=== PATIENT | male | born 1940 | race Caucasian/White ===

== ENCOUNTER 2020-01-26 14:19 | Outpatient (CLI) | payer MEDICARE, OTHER, SELFPAY ==
--- NOTE | 2020-01-26 14:43 | XR_ITS ---
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 This corresponds to a T score score of 0.0 and Z score of 0.8. Left femoral neck bone mineral density measures 0.833. This corresponds to a T score of -1.9 and Z sc ore of -0.6. Left forearm bone mineral density 1.033 with a T score of 0.4 and a Z score 1.7 XR/XR DEXA axial skeleton* [id number] IMPRESSION: Osteopenia Patient's FRAX calculated 10 year probability for major osteoporotic fracture i s 31.0 % and osteoporotic hip fracture is 16.8%. Bone mineral density lumbar spine has decreased -0.6% and -2.1% in the left fem oral neck since 2017.
== END 2020-01-26 14:20 | disposition home or self-care (01) ==
LOC: RADWPI 14:25
PROVIDERS: Family Provider Internal Medicine; PCP Internal Medicine; Visit Provider Internal Medicine Rheumatology
DX: Z79.52 Long term (current) use of systemic steroids (principal); M85.80 Other specified disorders of bone density and structure, unspecified site
CPT/HCPCS: 77080

== ENCOUNTER → 2020-05-12 06:13 | Day surgery (SDC) | payer MEDICARE, OTHER, SELFPAY ==
[2020-05-11 09:28] VITALS: BMI 26.7
[2020-05-12] VITALS (13 sets, daily range): BP systolic 99–139; BP diastolic 53–67; PULSE 52–74; RESP 16–18; TEMP 36.3; O2SAT 90–99
--- NOTE | 2020-05-12 06:00 | XACV_ITS ---
Gender: Male : 1940 Any Known Allergies: No known allergies Exam Priority: Routine Diagnostic Cath Status: Elective Diagnostic Findings Patient with disabling shortness of breath and chest pain. Claustrophobia to the point where could not tolerate stress testing and imaging. Previous angiography several years ago for similar symptoms was normal. Continues with same symptoms of disabling chest pain and shortness of breath. Coronary angiography recommended. Coronary angiography reveals right coronary artery dominance. The right coronary artery is normal. The left main is short. The circumflex and LAD are both completely normal. Conclusions Normal coronary arteries. Normal left ventricular function. Recommendations None. Interventional RX Recommendation: none Diagnostic RX Recommendation: none Anticoagulation: Heparin Ventriculography Ejection Fraction: 60.0 % I, the attending physician, have reviewed and verified all procedure medications. Yes, all medications given per verbal order History/Risk Factors Hypertension: No Dyslipidemia: No Peripheral Arterial Disease (PAD): No Myocardial Infarction ([place]): No Obesity: No Renal Disease: No Tobacco Use: Never Prior Interventions PCI: No CABG: No Valve Surgery: No Report Signatures Finalized by:Dr. Jakub Gifford MD on 05/12/2020 7:47:33 AM
[2020-05-12 06:38] LABS: Basophils % 0.3 %; Eosinophils # 0.2 10^3/uL (0.0-0.8); Eosinophils % 1.7 %; Hemoglobin 9.9 g/dL (11.7-16.6); Lymphocytes # 1.4 10^3/uL (0.8-4.8); Lymphocytes % 13.6 %; Mean Corpuscular HGB Conc 30.9 g/dL (30.0-36.0); Mean Corpuscular Hemoglobin 27.8 pg (28.0-34.0); Mean Corpuscular Volume 89.9 fL (80-94); Mean Platelet Volume 10.5 fL (7.4-10.4); Monocytes # 0.9 10^3/uL (0.2-0.9); Monocytes % 8.8 %; Neutrophils # 7.8 10^3/uL (1.8-7.7); Neutrophils % 74.8 %; Nucleated Red Blood Cells % 0 %; Platelet Count 386 10^3/cmm (130-400); Red Blood Count 3.56 10^6/uL (4.1-5.3); White Blood Count 10.4 10^3/uL (4.0-10.0)
[2020-05-12] MEDS: diphenhydrAMINE 50 mg Capsule PO (06:38)
[2020-05-12 07:26] LABS: Blood Urea Nitrogen 12 mg/dL (8-23); Calcium 9.3 mg/dL (8.5-10.5); Carbon Dioxide 24 mmol/L (22-29); Chloride 104 mmol/L (98-107); Glucose 105 mg/dL (65-115); Osmolality Calculated 288 mOsm/kg (285-295); Sodium 141 mmol/L (136-145)
--- NOTE | 2020-05-12 08:45 | PC.NURSE ---
TR Band 2ml air released from TR band at this time per protocol. Site unremarkable, no hematoma or bleeding noted. Will monitor. Pt sitting up in bed eating breakfast at this time, call light in reach.
== END | disposition home or self-care (01) ==
PROVIDERS: PCP Internal Medicine; Visit Provider Internal Medicine Cardiovascular Disease
DX: R06.02 Shortness of breath (principal); R07.9 Chest pain, unspecified; I34.0 Nonrheumatic mitral (valve) insufficiency; R00.2 Palpitations; Z79.891 Long term (current) use of opiate analgesic; Z79.52 Long term (current) use of systemic steroids; Z82.49 Family history of ischemic heart disease and other diseases of the circulatory system; F17.290 Nicotine dependence, other tobacco product, uncomplicated
CPT/HCPCS: 36415; 80048; 85025; 93452; C1769; C1887; C1894; J1644; J2001; J2250; J3010; J3490; J7030; Q0163; Q9967

== ENCOUNTER → 2020-05-19 11:00 | Outpatient (BNVA) | payer MEDICARE, OTHER, SELFPAY | PROVIDERS: PCP Internal Medicine; Visit Provider Nurse Practitioner Family | DX: R07.9 Chest pain, unspecified (principal) | CPT/HCPCS: 80048 ==

== ENCOUNTER 2020-09-19 16:25 | Inpatient (IN) | payer MEDICARE, OTHER, SELFPAY ==
[2020-09-19] VITALS (16 sets, daily range): BP systolic 113–163; BP diastolic 51–80; PULSE 65–97; RESP 12–22; TEMP 37–37.2; O2SAT 90–96; BMI 25.8
--- NOTE | 2020-09-19 17:17 | XRR_ITS ---
PROCEDURE INFORMATION: Exam: XR Chest, 1 View Exam date and time: 09/19/2020 6:37 PM Age: 80 years old Clinical indication: Chest pain; Type not specified; Prior surgery; Surgery type: Right shoulder; Additional info: Cp TECHNIQUE: Imaging protocol: XR of the chest Views: 1 view. COMPARISON: CT chest con [id number] 09/13/2018 3:52 PM FINDINGS: Tubes, catheters and devices: A right shoulder prosthesis projects in satisfactory position. Lungs: Unremarkable. No consolidation. Pleural space: Unremarkable. No pleural effusion. No pneumothorax. Heart/Mediastinum: Unremarkable. No cardiomegaly. Bones/joints: Unremarkable. XR/XR chest 1V portable [id number] IMPRESSION: No acute abnormality is seen in the chest.
--- NOTE | 2020-09-19 17:17 | ECG_ITS ---
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 Measurements Intervals [place] Rate: 75 P: 3 [place]: 150 QRS: -18 QRSD: 85 T: 15 QT: 344 QTc: 386 Interpretive Statements SINUS RHYTHM WITH SINUS ARRHYTHMIA LOW QRS VOLTAGE IN PRECORDIAL LEADS [QRS DEFLECTION < 1.0 mV IN CHEST LEADS] POSSIBLE RIGHT VENTRICULAR CONDUCTION DELAY [RSR (QR) IN V1/V2] Compared to ECG 09/13/2018 14:55:52 Low QRS voltage now present Short OH interval no longer present Electronically Signed On 09-19-2020 20:13:48 CDT by Kim Torrez M.D. [email or web address] [email or web address]/OM/[id number]
[2020-09-19 17:54] LABS: Basophils % 0.3 %; Eosinophils # 0.1 10^3/uL (0.0-0.8); Eosinophils % 0.6 %; Hematocrit 34.2 % (42.0-52.0); Hemoglobin 10.5 g/dL (11.7-16.6); Lymphocytes # 0.6 10^3/uL (0.8-4.8); Lymphocytes % 4.2 %; Mean Corpuscular HGB Conc 30.7 g/dL (30.0-36.0); Mean Corpuscular Hemoglobin 29.7 pg (28.0-34.0); Mean Corpuscular Volume 96.9 fL (80-94); Mean Platelet Volume 10.7 fL (7.4-10.4); Monocytes # 0.9 10^3/uL (0.2-0.9); Monocytes % 6.6 %; Neutrophils # 11.71 10^3/uL (1.8-7.7); Neutrophils % 86.9 %; Nucleated Red Blood Cells % 0 %; Platelet Count 439 10^3/cmm (130-400); Red Blood Count 3.53 10^6/uL (4.1-5.3); Red Cell Distribution Width 16.2 % (12.1-15.1); White Blood Count 13.5 10^3/uL (4.0-10.0)
--- NOTE | 2020-09-19 18:02 | ED_ITS ---
HPI - Chest Pain General: Chief Complaint: Chest Pain Stated Complaint: o2 86/ general not feeling good Time Seen by Provider: 09/19/20 17:38 Source: patient Mode of arrival: ambulatory Limitations: no limitations History of Present Illness: HPI narrative: 80-year-old male who states he has been having chest pain on mild dyspnea over the last 2 to 3 days. He denies any pain currently. He states he feels like he has palpitations and a pounding type pain when he does have the pain. Denies any vomiting or diarrhea. Denies any worsening or improving factors. Associated symptoms: Deny abdominal pain, dyspnea, fever(s), nausea or vomiting Review of Systems Const: Denies: fever(s), chills, body aches or change in appetite Eyes: Denies: blurry vision or eye discomfort ENMT: Denies: throat pain or dental pain Card: Reports: chest pain Resp: Denies: dyspnea GI: Denies: abdominal pain, nausea, vomiting or diarrhea : Denies: dysuria Musc: Denies: neck pain or back pain Skin/Breast: Denies: rash Neuro: Denies: headache(s) Psych: Denies: depression Vidal/Lymph: Denies: easy bruising All/Imm: Denies: urticaria PFSH ED PFSH: Medical History Arthritis Chest pain Mitral valve insufficiency Pounding heartbeat SOB (shortness of breath) Surgical History S/P appendectomy S/P cataract extraction Family History Mother CAD (coronary artery disease) Father , AGE 84 Myocardial infarction Social History Smoking and tobacco status: current every day smoker smokeless tobacco Smokeless tobacco details: OCCA Household members: spouse Marital status: service: No Current occupational status: employed Physical Exam Const: COMMON NORMALS: no acute distress, patient oriented x3 and healthy appearing HENMT: COMMON NORMALS: normocephalic and atraumatic HEAD & SCALP: normocephalic and atraumatic Eye: COMMON NORMALS: Equal, round and reactive pupils present and EOMs intact bilaterally PUPIL: Yes Equal, round and reactive pupils present Neck/C-Spine: COMMON NORMALS: full ROM and supple Chest: COMMONS NORMALS: normal inspection of the chest and normal palpation of entire chest wall Resp: COMMON NORMALS: normal respiratory effort, No retractions, No use of accessory muscles and clear to auscultation bilaterally AUSCULTATION: clear to auscultation bilaterally Cardio: COMMON NORMALS: regular rate, regular rhythm and No murmurs present (Cardio) RATE: regular rate RHYTHM: regular rhythm GI: COMMON NORMALS: Normal to inspection, nondistended, normoactive bowel sounds present, Soft to palpation, non-tender and no masses PALPATION: Yes Soft to palpation Extremity: COMMON NORMALS: normal to inspection and full ROM Neuro: COMMON NORMALS: patient oriented x3, moves all extremities and no focal motor deficits Psych: COMMON NORMALS: mental status grossly normal, Normal thought process present and cooperative THOUGHT PROCESS: Normal thought process present Skin: COMMON NORMALS: no rashes or lesions noted and no wounds GENERAL SKIN EXAM: no rashes or lesions noted Course Vital Signs: Vital signs: Vital Signs Temperature 98.6 F 09/19/20 16:31 Pulse Rate 86 09/19/20 21:43 Respiratory Rate 14 09/19/20 21:43 Blood Pressure 159/80 09/19/20 21:43 Pulse Oximetry 96 09/19/20 21:43 MDM - Chest Pain MDM Narrative: Medical decision making narrative: Patient presents with a pulmonary visit likely causing his chest pain and shortness of breath. We will start him on Lovenox. I spoke to hospitalist and will admit. Patient is been stable while here Lab Data: Labs: Lab Results 09/19/20 09/19/20 09/19/20 Range/Units 17:46 17:46 17:46 WBC 13.5 H (4.0-10.0) 10^3/ uL RBC 3.53 L (4.1-5.3) 10^6/u L Hgb 10.5 L (11.7-16.6) g/dL Hct 34.2 L (42.0-52.0) % MCV 96.9 H (80-94) fL MCH 29.7 (28.0-34.0) pg MCHC 30.7 (30.0-36.0) g/dL RDW 16.2 H (12.1-15.1) % Plt Count 439 H (130-400) 10^3/c mm MPV 10.7 H (7.4-10.4) fL Neut % (Auto) 86.9 % Lymph % (Auto) 4.2 % [place] % (Auto) 6.6 % Eos % (Auto) 0.6 % Baso % (Auto) 0.3 % Neut # (Auto) 11.71 H (1.8-7.7) 10^3/u L Lymph # (Auto) 0.6 L (0.8-4.8) 10^3/u L [place] # (Auto) 0.9 (0.2-0.9) 10^3/u L Eos # (Auto) 0.1 (0.0-0.8) 10^3/u L Baso # (Auto) 0.0 (0.0-0.1) 10^3/u L Nucleated RBC % (a uto) 0 % Nucleated RBCs # 0.0 /100WBC PT 13.60 (12.1-14.9) SECO NDS INR 1.01 (0.8-1.2) D-Dimer (0-0.59) ug/mIFE U Sodium 137 (136-145) mmol/L Potassium 4.4 (3.5-5.1) mmol/L Chloride 102 (98-107) mmol/L Carbon Dioxide 27 (22-29) mmol/L Anion Gap 12.4 (5-19) BUN 10 (8-23) mg/dL Creatinine 0.9 (0.7-1.2) mg/dL GFR Calculation Not Reportable Glucose 121 H (65-115) mg/dL Calculated Osmolal ity 284 L (285-295) mOsm/k g Calcium 9.4 (8.5-10.5) mg/dL Total Bilirubin 0.8 (0.15-1.2) mg/dL AST 16 (0-40) U/L ALT 15 (0-41) U/L Alkaline Phosphata se 104 (40-130) IU/L Troponin T Baselin e (0-15) ng/L Troponin T 120 Min quileute (0-15) ng/L Delta Troponin T (0-10) ABS# Total Protein 6.2 L (6.6-8.7) g/dL Albumin 4.0 (3.5-5.2) g/dL Globulin 2.2 (1.3-4.6) g/dL 09/19/20 09/19/20 09/19/20 Range/Units 17:46 17:46 19:40 WBC (4.0-10.0) 10^3/ uL RBC (4.1-5.3) 10^6/u L Hgb (11.7-16.6) g/dL Hct (42.0-52.0) % MCV (80-94) fL MCH (28.0-34.0) pg MCHC (30.0-36.0) g/dL RDW (12.1-15.1) % Plt Count (130-400) 10^3/c mm MPV (7.4-10.4) fL Neut % (Auto) % Lymph % (Auto) % [place] % (Auto) % Eos % (Auto) % Baso % (Auto) % Neut # (Auto) (1.8-7.7) 10^3/u L Lymph # (Auto) (0.8-4.8) 10^3/u L [place] # (Auto) (0.2-0.9) 10^3/u L Eos # (Auto) (0.0-0.8) 10^3/u L Baso # (Auto) (0.0-0.1) 10^3/u L Nucleated RBC % (a uto) % Nucleated RBCs # /100WBC PT (12.1-14.9) SECO NDS INR (0.8-1.2) D-Dimer 1.21 H (0-0.59) ug/mIFE U Sodium (136-145) mmol/L Potassium (3.5-5.1) mmol/L Chloride (98-107) mmol/L Carbon Dioxide (22-29) mmol/L Anion Gap (5-19) BUN (8-23) mg/dL Creatinine (0.7-1.2) mg/dL GFR Calculation Glucose (65-115) mg/dL Calculated Osmolal ity (285-295) mOsm/k g Calcium (8.5-10.5) mg/dL Total Bilirubin (0.15-1.2) mg/dL AST (0-40) U/L ALT (0-41) U/L Alkaline Phosphata se (40-130) IU/L Troponin T Baselin e 12 (0-15) ng/L Troponin T 120 Min [place] 10.60 (0-15) ng/L Delta Troponin T -1.40 L (0-10) ABS# Total Protein (6.6-8.7) g/dL Albumin (3.5-5.2) g/dL Globulin (1.3-4.6) g/dL Imaging Data^: CXR: Attestation: I personally reviewed and interpreted this imaging study as follows: My impression: no acute abnormality CT Chest: Radiologist's impression: [address] [address] [address] Scan Report Signed Patient: Familia Appiah Unit #: [id number] : 1940 Age/Sex: 80 / M ADM Date: 09/19/20 Loc: ER Room/Bed: Attending Dr: Ordering Provider/Ordering MD: Jayme Matos MD Date of Service: 09/19/20 Procedure(s): CT angio chest PE [facility] [address] Accession Number(s): [id number] Report Number: [id number] PROCEDURE INFORMATION: Exam: CT Angiography Chest With Contrast Exam date and time: 09/19/2020 9:05 PM Age: 80 years old Clinical indication: Chest pain; Prior surgery; Surgery type: RT shoulder; Patient HX: Pulse ox 84-85%. Increased hr. Weak and feels like passing out; Additional info: Cp TECHNIQUE: Imaging protocol: Computed tomographic angiography of the chest with intravenous contrast. 3D rendering (Not supervised by radiologist): MIP and/or 3D reconstructed images were created by the technologist. Radiation optimization: All CT scans at this facility use at least one of these dose optimization techniques: automated exposure control; mA and/or kV adjustment per patient size (includes targeted exams where dose is matched to clinical indication); or iterative reconstruction. Contrast material: OMNI 350; Contrast volume: 71 ml; Contrast route: INTRAVENOUS (IV); COMPARISON: CT chest wo [facility] [id number] 09/13/2018 3:52 PM RADIATION DOSE METRICS: Total DLP (mGy-cm): 582.04 FINDINGS: Pulmonary arteries: Several bilateral segmental to subsegmental pulmonary emboli. Aorta: Unremarkable. No aortic aneurysm. No aortic dissection. Lungs: Lingular lobe probable calcified granuloma. Pleural space: Unremarkable. No pneumothorax. No pleural effusion. Heart: Mild cardiomegaly. Mediastinal space: Right infrahilar 2.9 cm soft tissue nodular density with some calcification. Lymph nodes: Unremarkable. No enlarged lymph nodes. Bones/joints: Unremarkable. No acute fracture. Soft tissues: Left hepatic lobe 2.9 cm cyst similar to prior exam, negative for follow-up advised CT/CT angio chest PE protcl [id number] IMPRESSION: 1. Several bilateral segmental to subsegmental pulmonary emboli. 2. Mild cardiomegaly. 3. Right infrahilar 2.9 cm soft tissue nodular density with some calcification, similar to prior exam likely reflects a nonspecific lymph node given stability. 4. Lingular lobe probable calcified granuloma. EKG Data^: EKG 1: Attestation: I personally reviewed and interpreted this EKG as follows: EKG interpretation date: 09/19/20 EKG interpretation time: 18:07 Interpretation: nsr hr [address] or t wave abnormalities qrs 85 qtc 344 Discharge Plan Discharge Patient Disposition: Admitted As Inpatient Clinical Impression: Pulmonary embolism Qualifiers: Pulmonary embolism type: unspecified Chronicity: acute Acute cor pulmonale presence: without acute cor pulmonale Qualified Code(s): I26.99 - Other pulmonary embolism without acute cor pulmonale Condition: Stable Referrals: Pernell Cisneros DO [Primary Care Provider] - Coding Level of Care Code ED Appliance Worker for Chg Fwd Exam Comprehensive
[2020-09-19 18:09] LABS: INR 1.01 (0.8-1.2)
[2020-09-19 18:18] LABS: Alanine Aminotransferase 15 U/L (0-41); Alkaline Phosphatase 104 IU/L (40-130); Anion Gap 12.4 (5-19); Aspartate Amino Transferase 16 U/L (0-40); Blood Urea Nitrogen 10 mg/dL (8-23); Calcium 9.4 mg/dL (8.5-10.5); Carbon Dioxide 27 mmol/L (22-29); Chloride 102 mmol/L (98-107); Globulin 2.2 g/dL (1.3-4.6); Glucose 121 mg/dL (65-115); Osmolality Calculated 284 mOsm/kg (285-295); Potassium 4.4 mmol/L (3.5-5.1); Sodium 137 mmol/L (136-145); Total Bilirubin 0.8 mg/dL (0.15-1.2); Total Protein 6.2 g/dL (6.6-8.7)
[2020-09-19 18:32] LABS: Troponin(5th) Baseline 12 ng/L (0-15)
[2020-09-19 20:10] LABS: D Dimer 1.21 ug/mIFEU (0-0.59)
--- NOTE | 2020-09-19 20:21 | CTR_ITS ---
PROCEDURE INFORMATION: Exam: CT Angiography Chest With Contrast Exam date and time: 09/19/2020 9:05 PM Age: 80 years old Clinical indication: Chest pain; Prior surgery; Surgery type: RT shoulder; Patient HX: Pulse ox 84-85%. Increased hr. Weak and feels like passing out; Additional info: Cp TECHNIQUE: Imaging protocol: Computed tomographic angiography of the chest with intravenous contrast. 3D rendering (Not supervised by radiologist): MIP and/or 3D reconstructed images were created by the technologist. Radiation optimization: All CT scans at this facility use at least one of these dose optimization techniques: automated exposure control; mA and/or kV adjustment per patient size (includes targeted exams where dose is matched to clinical indication); or iterative reconstruction. Contrast material: OMNI 350; Contrast volume: 71 ml; Contrast route: INTRAVENOUS (IV); COMPARISON: CT chest wo con [id number] 09/13/2018 3:52 PM RADIATION DOSE METRICS: Total DLP (mGy-cm): 582.04 FINDINGS: Pulmonary arteries: Several bilateral segmental to subsegmental pulmonary emboli. Aorta: Unremarkable. No aortic aneurysm. No aortic dissection. Lungs: Lingular lobe probable calcified granuloma. Pleural space: Unremarkable. No pneumothorax. No pleural effusion. Heart: Mild cardiomegaly. Mediastinal space: Right infrahilar 2.9 cm soft tissue nodular density with some calcification. Lymph nodes: Unremarkable. No enlarged lymph nodes. Bones/joints: Unremarkable. No acute fracture. Soft tissues: Left hepatic lobe 2.9 cm cyst similar to prior exam, negative for follow-up advised CT/CT angio chest PE protcl [id number] IMPRESSION: 1. Several bilateral segmental to subsegmental pulmonary emboli. 2. Mild cardiomegaly. 3. Right infrahilar 2.9 cm soft tissue nodular density with some calcification, similar to prior exam likely reflects a nonspecific lymph node given stability. 4. Lingular lobe probable calcified granuloma. THIS REPORT CONTAINS FINDINGS THAT MAY BE CRITICAL TO PATIENT CARE. The findings were verbally communicated via telephone conference with emre Matos at 9:33 PM CDT on 09/19/2020. The findings were acknowledged and understood. Radiation Dose CTDIVOL = (mGy): DLP = 582.04 (mGy-cm)
[2020-09-19] MEDS: iohexol 350 mg/mL 100 mL Btl IV (21:12)
--- NOTE | 2020-09-19 21:21 | PC.NURSE ---
Patient raul Vang called for an update. Got verbal permission from patient to speak with her.
[2020-09-19] MEDS: enoxaparin 80 mg/0.8 mL Syringe SUBCUT (21:41)
[2020-09-19] MEDS: morphine 4 mg/mL SDV 1 mL IVP (21:58)
--- NOTE | 2020-09-19 22:10 | PM.HP ---
Providers/Chief Complaint Admitting Physician: Sussy Conley MD Primary Care Provider: Pernell Cisneros DO Chief Complaint: o2 86/ general not feeling good History of Present Illness Familia Appiah is a 80 year old male with history of polymyalgia rheumatica, hypertension, cardiac catheterization because was unable to get stress test due to his claustrophobia, normal angiogram, came in today for worsening shortness of breath and chest pain. Patient stating that for last 2 to 3 days he has been experiencing dyspnea on exertion and at rest, he did not notice any fever, sputum production, this dyspnea is associated with chest pain which comes on and off, without any aggravating or relieving factors, pain would subside after 4 to 5 minutes which he is describing as sharp, nonradiating, today his noticed that his pulse ox was showing O2 saturation 80%, he was tachycardic and brought him to the ER for further evaluation. Diagnostics in the ER revealed bilateral pulmonary embolism, CT was obtained after high D-dimer, patient is endorsing not leading a sedentary lifestyle, he considers himself very active, no previous history of cancer, patient has not undergone surveillance colonoscopy yet. Received Lovenox dose in the ER, was saturating well on room air, heart rate 70s, systolic blood pressure 120s, Review of Systems Const: Reports: body aches, fatigue and malaise; Denies: fever(s) or chills Eyes: Denies: change in vision ENMT: Denies: throat pain Card: Reports: chest pain, pre-syncope and dyspnea on exertion; Denies: orthopnea Resp: Reports: dyspnea and non-productive cough GI: Denies: abdominal pain : Denies: flank pain Musc: Denies: neck pain Skin/Breast: Reports: rash and new lesions (Dog scratch dana) Neuro: Denies: headache(s) Psych: Reports: anxiety Endo: Denies: polyuria Vidal/Lymph: Denies: easy bruising All/Imm: Denies: urticaria Medications/Allergies Home Medications Medication Instructions Recorded Confirmed Last Taken Type gabapentin 300 mg capsule 300 mg PO TID PRN 01/06/20 05/19/20 Unknown History prednisone 10 mg tablet 10 mg PO PRN 01/06/20 05/19/20 05/11/20 08:00 History tamsulosin 0.4 mg capsule 0.4 mg PO DAILY 01/06/20 05/19/20 05/11/20 08:00 History hydrocodone-acetaminophen 1 tab PO Q6H PRN 05/11/20 05/19/20 05/12/20 05:00 History hydroxyzine HCl 25 mg PO PRN PRN 05/11/20 05/19/20 Unknown History Allergies Allergy/AdvReac Type Severity Reaction Status Date / Time No Known Allergies Allergy Verified 09/19/20 16:31 PFSH Acute PFSH: Medical History Arthritis Chest pain Mitral valve insufficiency Pounding heartbeat SOB (shortness of breath) Surgical History Previous back surgery S/P appendectomy S/P cataract extraction Family History Mother CAD (coronary artery disease) Father , AGE 84 Myocardial infarction Social History Smoking and tobacco status: current every day smoker smokeless tobacco Smokeless tobacco details: OCCA Household members: spouse Marital status: service: No Current occupational status: employed Vitals/I&O/Wt Last Vital Signs Temp 98.6 F 09/19/20 16:31 Pulse 90 09/19/20 22:00 Resp 17 09/19/20 22:00 BP 163/79 09/19/20 22:00 Pulse Ox 95 09/19/20 22:00 Weight last 48 hrs Weight 77.111 kg Physical Exam Narrative: EXAM NARRATIVE: Very pleasant elderly male Appears well-hydrated No acute distress Appears stated age S1, S2 no tachycardia heart rate 67 Abdomen soft nontender bowel sound present EOMI, PERRLA Neurologically no focal deficit Lower extremity no edema gangrene ulcer No swelling of legs noted as well Abdomen soft nontender bowel sounds present lungs are clear to auscultation Appropriate mood and affect Data : 09/19/20 17:46 09/19/20 17:46 A&P Assessment and plan (1) Pulmonary embolism: Bilateral pulmonary embolism without any inciting event Patient is not leading a sedentary lifestyle, no history of cancer, no previous history of DVT or stroke, however has not undergone surveillance colonoscopy, denying night sweats, fever, weight loss I will start him on Lovenox for now, get BMP and echo in the morning Current troponins with negative delta, no active chest pain or shortness of breath We talked about use of anticoagulant agent and risk factors such as GI bleed, might go home on oral anticoagulant agents I would only check B12 level considering microcytic anemia which can also cause hypercoagulable hematological state Would obtain lower extremity Dopplers Status: Acute Qualifiers: Acute cor pulmonale presence: without acute cor pulmonale Chronicity: acute Pulmonary embolism type: unspecified Qualified Code(s): I26.99 - Other pulmonary embolism without acute cor pulmonale Additional A&P Information Polymyalgia rheumatica: Continue prednisone 10 mg daily DVT prophylaxis not indicated because of use of Lovenox Echo in the morning Cardiac diet Full code Attestations Medical Necessity Statement*: Anticipating discharge in less than 48 hours currently need initiation of anticoagulant agent for symptomatic PE, needs echo in the morning Time Spent in Patient Care: (>than 50% of time spent in counselling and/or direct pt care on unit). 45 minutes Coding Level of Care Code Acute Antenna Engineer for Sandra Freeman Diagnoses Pulmonary embolism I26.99 Acute cor pulmonale presence: without acute cor pulmonale Chronicity: acute Pulmonary embolism type: unspecified
[2020-09-19 23:10] LABS: Glucose Point of Care 92 mg/dL (70-110)
--- NOTE | 2020-09-19 23:17 | ECG_ITS ---
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 Measurements Intervals [place] Rate: 65 P: 66 HI: 156 QRS: 1 QRSD: 80 T: 28 QT: 358 QTc: 374 Interpretive Statements SINUS RHYTHM WITH MARKED SINUS ARRHYTHMIA POSSIBLE RIGHT VENTRICULAR CONDUCTION DELAY [RSR (QR) IN V1/V2] Compared to ECG 09/19/2020 18:07:38 No significant changes Electronically Signed On 09-20-2020 21:47:06 CDT by Alberto Almaraz M.D. [id number]
[2020-09-20] VITALS (109 sets, daily range): BP systolic 108–167; BP diastolic 50–88; PULSE 63–112; RESP 10–29; TEMP 36.6–37; O2SAT 86–97
[2020-09-20 00:33] LABS: NT Pro B Type Natriuretic Pept 57 pg/mL (0-450)
[2020-09-20 00:34] LABS: Vitamin B12 209 pg/mL (232-1245)
--- NOTE | 2020-09-20 00:47 | PC.NURSE ---
Admission Note: Patient transported from ED to ICU 12 at 2305 with ER staff. Pt on gurlas cruces for transfer, but was able to ambulate and transfer to ICU bed on his own with minimal assistance. New transfer orders received from MD Jarvis. Physical assessment and admission assessment completed. Wound noted to right forearm/wrist, that patient stated was from a dog scratching him . Pt SPO2 status was between 87-90% when arriving on unit. Placed on 2L NC and currently maintaining 96-98% Personal phone at bedside, with a bag of belongings placed in room with pt. No needs verbalized at this time.
--- NOTE | 2020-09-20 06:28 | PC.NURSE ---
Shift Summary: Patient slept well for majority of shift. A few episodes of sleep apnea throughout night, where SPO2 dropped briefly into the 70's but would return back to mid 90's. One apneic event was timed at being 55 seconds in duration. HR changed from Normal Sinus, to Sinus Arrhythmia during episodes. Pt remains on 2L NC. Report given to oncjay dayshift RN.
--- NOTE | 2020-09-20 08:22 | PM.PN ---
Subjective Subjective: Interval history: Patient reports mild left-sided chest discomfort especially on deep inspiration. Denies being short of breath. Currently saturating in the 90s on 2 L by nasal cannula. Reports that for the last 2 days he has been having left lower quadrant abdominal discomfort especially when he applies pressure. He thinks that it is likely related to maneuver to see his chiropractor performed several days ago. Reports that for the last 1 year he has been having blood with his bowel movements. Mostly reports blood on toilet paper and he is not sure if there was blood on the stool as he never looked. Patient reports that he never had colonoscopy. Denies melena. Vitals/I&O/Wt Last Vital Signs Temp 98.9 F 09/19/20 23:10 Pulse 75 09/20/20 05:35 Resp 16 09/20/20 05:35 BP 138/62 09/20/20 05:35 Pulse Ox 94 09/20/20 05:35 Weight last 48 hrs Weight 77.111 kg Physical Exam Const: COMMON NORMALS: no acute distress and patient oriented x3 Resp: COMMON NORMALS: normal respiratory effort OTHER: Very minimal bibasilar Rales. Cardio: COMMON NORMALS: regular rate, regular rhythm and S2 normal heart sound present RATE: regular rate RHYTHM: regular rhythm HEART SOUNDS: S2 normal heart sound present OTHER: No lower extremity edema GI: COMMON NORMALS: Normal to inspection, nondistended, normoactive bowel sounds present and Soft to palpation PALPATION: Yes Soft to palpation OTHER: Slightly tender to palpation of the left lower quadrant. Diastases recti noted. Neuro: COMMON NORMALS: patient oriented x3 and no focal motor deficits Data : 09/19/20 17:46 09/19/20 17:46 A&P Assessment and plan (1) Pulmonary embolism: Bilateral pulmonary embolism without any inciting event Patient is not leading a sedentary lifestyle, no history of cancer, no previous history of DVT or stroke, however has not undergone surveillance colonoscopy, denying night sweats, fever, weight loss I will start him on Lovenox for now, get BMP and echo in the morning Current troponins with negative delta, no active chest pain or shortness of breath We talked about use of anticoagulant agent and risk factors such as GI bleed, might go home on oral anticoagulant agents I would only check B12 level considering microcytic anemia which can also cause hypercoagulable hematological state Would obtain lower extremity Dopplers Status: Acute Qualifiers: Acute cor pulmonale presence: without acute cor pulmonale Chronicity: acute Pulmonary embolism type: unspecified Qualified Code(s): I26.99 - Other pulmonary embolism without acute cor pulmonale (2) B12 deficiency: Status: Acute (3) SOB (shortness of breath): Status: Acute Additional A&P Information Polymyalgia rheumatica: Continue prednisone 10 mg daily Left lower quadrant abdominal pain and hematochezia. DVT prophylaxis not indicated because of use of Lovenox Cardiac diet Full code PLAN: We will proceed with CT of abdomen and pelvis for further evaluation. Bilateral lower extremity venous ultrasound and echocardiogram pending. We will proceed with initial anemia work-up and also check CEA Start patient on vitamin B12 injections. Check CBC and CMP this morning. Attestations Medical Necessity Statement*: Patient with PE and reported hematochezia requires close ICU monitoring and treatment. 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
--- NOTE | 2020-09-20 08:33 | CT_ITS ---
WS: [id number] CT ABDOMEN PELVIS TECHNIQUE: Contrast-enhanced CT of the abdomen and pelvis with coronal and sagittal reformatted image s. CLINICAL INFORMATION: Left lower quadrant pain. New diagnosis of PE and reports hematochezia. COMPARISON: None. DLP: 632.[address] scans at [facility] use at least one of these dose optimization techniques: automat ed exposure control; mA and/or kV adjustment per patient size (includes targeted exams where dose is matched to clinical indication); or iterative reconstruction. FINDINGS: Markedly enlarged heterogeneous enhancing prostate with bladder outlet obstruction. Prostate measures 6.9 x 7.7 x 7.7 cm AP by transverse by craniocaudal. Thickening of the seminal vesicles. Thickening of the bladder with pulsion diverticuli. Bladder outlet obstruction. Mild diffuse fatty infiltration the liver. Normal portal vein and splenic vein. Small lesion left hep atic lobe likely represents cavernous hemangioma measuring 2.0 CM. This appears stable since 2018. No rmal spleen. Splenic granulomas. Small esophageal hiatal hernia. Subsegmental atelectasis in the lung bases. Fatty atrophy of the pancreas. Normal caliber abdominal aorta. Adrenal glands are normal. No hydronephrosis in either kidney. Left r enal cyst measuring 4.2 CM. No upper abdominal periaortic lymphadenopathy. Aortic calcification. Sigmoid diverticulosis. Small amount of thickening and inflammatory stranding involving the sigmoid c olon left lower quadrant suspicious for early or mild diverticulitis. No abscess. Normal appendix in the right lower quadrant. No pelvic sidewall or inguinal lymphadenopathy. Femur with screw fixation r ight femur. CT/CT abdomen pelvis w con* [id number] IMPRESSION: 1. Short segment of mild or early acute diverticulitis in the left lower quadr ant. No abscess. 2. Markedly enlarged prostate similar to 2018 with thickening of the seminal v esicles. Recommend correlation PSA. 3. Low-attenuation lesion left hepatic lobe likely hemangioma appears stable. 4. No abdominal or pelvic lymphadenopathy. 5. Left renal cyst measuring 4.2 CM. 6. Evidence of bladder outlet obstruction from enlarged prostate.
--- NOTE | 2020-09-20 08:35 | PC.NURSE ---
wound on right hand is from dog scratching him.
[2020-09-20] MEDS: iohexol 300 mg/mL 100 mL Btl IV (08:50)
[2020-09-20] MEDS: HYDROcodone-acetaminophen 10-325 mg Tablet 1 TAB PO ×2 (09:01→16:49)
[2020-09-20] MEDS: pantoprazole DR 40 mg Tablet PO (09:02)
[2020-09-20] MEDS: enoxaparin 80 mg/0.8 mL Syringe SUBCUT ×2 (09:02→20:37)
--- NOTE | 2020-09-20 09:11 | PC.RESP ---
SMOKING CESSATION INFORMATION SENT TO PATIENT.
[2020-09-20 09:44] LABS: Basophils # 0.1 10^3/uL (0.0-0.1); Basophils % 0.6 %; Eosinophils # 0.2 10^3/uL (0.0-0.8); Eosinophils % 2.2 %; Hematocrit 30.7 % (42.0-52.0); Hemoglobin 9.4 g/dL (11.7-16.6); Lymphocytes # 1.2 10^3/uL (0.8-4.8); Mean Corpuscular HGB Conc 30.6 g/dL (30.0-36.0); Mean Corpuscular Hemoglobin 29.7 pg (28.0-34.0); Mean Corpuscular Volume 97.2 fL (80-94); Mean Platelet Volume 10.7 fL (7.4-10.4); Monocytes # 0.8 10^3/uL (0.2-0.9); Monocytes % 8.3 %; Neutrophils # 6.77 10^3/uL (1.8-7.7); Neutrophils % 74.6 %; Nucleated Red Blood Cells % 0 %; Platelet Count 389 10^3/cmm (130-400); Red Blood Count 3.16 10^6/uL (4.1-5.3); Red Cell Distribution Width 16.3 % (12.1-15.1); White Blood Count 9.1 10^3/uL (4.0-10.0)
[2020-09-20 10:14] LABS: Carcinoembryonic Antigen 2.1 ng/mL (0.0-4.7)
[2020-09-20 10:24] LABS: Folate Level 9.7 ng/mL (4.5-32.2)
[2020-09-20 10:35] LABS: Alanine Aminotransferase 12 U/L (0-41); Albumin Level 3.4 g/dL (3.5-5.2); Alkaline Phosphatase 81 IU/L (40-130); Aspartate Amino Transferase 12 U/L (0-40); Blood Urea Nitrogen 11 mg/dL (8-23); Calcium 8.5 mg/dL (8.5-10.5); Carbon Dioxide 25 mmol/L (22-29); Chloride 102 mmol/L (98-107); Ferritin 34 ng/mL (30-400); Glucose 105 mg/dL (65-115); Iron 72 ug/dL (59-158); Osmolality Calculated 286 mOsm/kg (285-295); Percent Saturation 29.3 % (20-50); Sodium 138 mmol/L (136-145); Total Iron Binding Capacity 245 mcg/dl; Total Protein 5.4 g/dL (6.6-8.7); Unsaturated Iron Binding 173 ug/dL (112-347)
[2020-09-20 10:36] LABS: Anion Gap 14.4 (5-19); Potassium 3.4 mmol/L (3.5-5.1)
[2020-09-20] MEDS: ciprofloxacin 400 MG/200 ML PREMIX 200 MG IV ×2 (10:38→23:20)
[2020-09-20] MEDS: cyanocobalamin 1,000 mcg/mL SDV 1000 MCG IM (10:42)
[2020-09-20] MEDS: tamsulosin 0.4 mg Capsule PO (10:43)
[2020-09-20] MEDS: metroNIDAZOLE IV 500 MG/100 ML PREMIX 100 MG IV ×2 (12:34→20:36)
--- NOTE | 2020-09-20 19:16 | PC.NURSE ---
to bathroom. note bright red drops in stool, minimal amt. unable to see stool d/t toilet paper. report to binu for noc. shift.
--- NOTE | 2020-09-20 23:08 | USCV_ITS ---
Familia Appiah Age: 80 Gender: M : 1940 Exam Date: 09/20/2020 09:40 Ordering Phys: Sussy Conley MD Technologist: Tanya Brown [place] [facility] [place] PE BP: 138 / 62 HR: 69 Rhythm: Sinus Technical Quality: Adequate MEASUREMENTS (Male / Female) Normal Values 2D ECHO LV Diastolic Diameter PLAX 2.5 cm 4.2 - 5.9 / 3.9 - 5.3 cm LV Systolic Diameter PLAX 2.0 cm LV Chamber Size 2.1 cm IVS Diastolic Thickness 1.4 cm 0.6 - 1.0 / 0.6 - 0.9 cm IVS Systolic Thickness 1.0 cm LVPW Diastolic Thickness 1.6 cm 0.6 - 1.0 / 0.6 - 0.9 cm LVPW Systolic Thickness 2.1 cm RV Chamber Size 2.9 cm LVOT Diameter 2.0 cm LV Ejection Fraction 2D Teich 39.4 % LV Ejection Fraction MOD 2C 71.1 % LV Ejection Fraction 2C AL 69.9 % LA Diameter 3.0 cm LA Width 3.2 cm LA Height 3.8 cm RA Width 3.0 cm RA Height 3.9 cm Aorta at Sinotubular Diameter 2.5 cm M-MODE LV Diastolic Diameter MM 5.2 cm 4.2 - 5.9 / 3.9 - 5.3 cm LV Systolic Diameter MM 3.2 cm LV Ejection Fraction MM Teich 69.7 % IVS Diastolic Thickness MM 0.8 cm 0.6 - 1.0 / 0.6 - 0.9 cm IVS Systolic Thickness MM 1.0 cm LVPW Diastolic Thickness MM 1.0 cm 0.6 - 1.0 / 0.6 - 0.9 cm LVPW Systolic Thickness MM 1.4 cm Aortic Annulus Diameter 3.3 cm LA Ao Ratio MM 1.1 MV E Point Septal Separation 0.4 cm DOPPLER AV Peak Velocity 149.0 cm/s LVOT Peak Velocity 120.0 cm/s AV Area Cont Eq vti 2.6 cm squared AV Area Cont Eq pk 2.6 cm squared MV Area PHT 3.3 cm squared Mitral E to A Ratio 1.2 MV E' Velocity 49.0 cm/s Mitral E to MV E' Ratio 7.7 Mitral E to LV E' Lateral Ratio 7.8 Mitral E to LV E' Septal Ratio 7.7 TR Peak Velocity 240.5 cm/s TR Peak Gradient 23.1 mmHg TV Peak E Velocity 62.0 cm/s Right Atrial Pressure 3.0 mmHg Pulmonary Artery Systolic Pressu 26.1 mmHg PV Peak Velocity 68.0 cm/s RV Acceleration Time 0.1 s RV Ejection Time 0.3 s RV AcT/ET 0.5 FINDINGS Left Ventricle Normal left ventricular size, systolic function and wall thickness, with no regional wall motion abnormalities. LVEF 60 to 65%. Normal left ventricular wall thickness. Normal diastolic filling pattern. Right Ventricle The right ventricle is normal in size and function. Right Atrium The right atrium is normal in size. Left Atrium The left atrium is normal in size. Mitral Valve Structurally normal mitral valve without significant stenosis or prolapse. There is no mitral regurgitation. Aortic Valve Structurally normal aortic valve without significant sclerosis or stenosis. There is no aortic regurgitation. Tricuspid Valve Structurally normal tricuspid valve without significant stenosis or regurgitation. Insufficient TR jet to calculate RVSP. Pulmonic Valve Structurally normal pulmonic valve without significant stenosis. There is no pulmonic regurgitation. Pericardium Normal pericardium without effusion. Aorta Normal ascending aorta dimension. CONCLUSIONS LV systolic function is normal with EF of 60 to 65%. Normal diastolic function. Compared to prior study from 03/27/2018, no significant changes are noted. Rell Richards MD (Electronically Signed) Final Date: 20 September 2020 11:45 S
--- NOTE | 2020-09-20 23:36 | USCV_ITS ---
Familia Appiah Age: 80 Gender: M : 1940 Exam Date: 09/20/2020 09:51 Ordering Phys: Sussy Conley MD Technologist: Tanya Brown [place] [facility] [place]: acute PE HISTORY: Pulmonary embolism. PROCEDURES: Venous duplex imaging was performed in bilateral lower extremities. The following venous structures were evaluated: common femoral vein, profunda vein, proximal portion of the greater saphenous vein, superficial femoral vein, and the popliteal vein. In addition, the posterior tibial and peroneal trunk were evaluated. Serial compression, augmentation maneuvers, and spectral Doppler flow evaluation were performed. FINDINGS: Normal 2-D Doppler and augmentation and compressibility throughout the lower extremity venous structures. Additional imaging through the proximal calf veins also reveals no thrombus. Limited evaluation of the greater saphenous vein is patent with no thrombus.. CONCLUSIONS No evidence of right lower extremity DVT. No evidence of left lower extremity DVT. Dae Holman MD (Electronically Signed) Final Date: 20 September 2020 12:40 S
[2020-09-21] VITALS (8 sets, daily range): BP systolic 131–155; BP diastolic 41–60; PULSE 68–88; RESP 13–21; TEMP 36.7–37.6; O2SAT 87–96
--- NOTE | 2020-09-21 01:09 | PC.NURSE ---
Patient O2 titrated up from 2L to 3L NC. SPO2 alarmed at 89%. Returned and maintained back at 96% after titration RT notified of change.
[2020-09-21] MEDS: metroNIDAZOLE IV 500 MG/100 ML PREMIX 100 MG IV ×2 (03:34→13:44)
[2020-09-21] MEDS: HYDROcodone-acetaminophen 10-325 mg Tablet 1 TAB PO ×2 (03:37→08:54)
[2020-09-21 04:19] LABS: Basophils # 0.1 10^3/uL (0.0-0.1); Basophils % 0.7 %; Eosinophils # 0.2 10^3/uL (0.0-0.8); Hematocrit 31.1 % (42.0-52.0); Hemoglobin 9.6 g/dL (11.7-16.6); Lymphocytes # 1.1 10^3/uL (0.8-4.8); Lymphocytes % 12.4 %; Mean Corpuscular HGB Conc 30.9 g/dL (30.0-36.0); Mean Corpuscular Hemoglobin 29.5 pg (28.0-34.0); Mean Corpuscular Volume 95.7 fL (80-94); Mean Platelet Volume 10.8 fL (7.4-10.4); Monocytes # 0.8 10^3/uL (0.2-0.9); Monocytes % 8.4 %; Neutrophils # 6.86 10^3/uL (1.8-7.7); Neutrophils % 75.1 %; Nucleated Red Blood Cells % 0 %; Platelet Count 405 10^3/cmm (130-400); Red Blood Count 3.25 10^6/uL (4.1-5.3); Red Cell Distribution Width 16.5 % (12.1-15.1); White Blood Count 9.1 10^3/uL (4.0-10.0)
[2020-09-21 04:48] LABS: Alanine Aminotransferase 11 U/L (0-41); Albumin Level 3.2 g/dL (3.5-5.2); Alkaline Phosphatase 86 IU/L (40-130); Anion Gap 11.7 (5-19); Aspartate Amino Transferase 12 U/L (0-40); Blood Urea Nitrogen 11 mg/dL (8-23); Calcium 8.4 mg/dL (8.5-10.5); Carbon Dioxide 28 mmol/L (22-29); Chloride 101 mmol/L (98-107); Globulin 2.1 g/dL (1.3-4.6); Glucose 85 mg/dL (65-115); Osmolality Calculated 283 mOsm/kg (285-295); Potassium 3.7 mmol/L (3.5-5.1); Sodium 137 mmol/L (136-145); Total Protein 5.3 g/dL (6.6-8.7)
--- NOTE | 2020-09-21 07:38 | PC.NURSE ---
Shift Summary: Patient rested well majority of shift. One instance of pain reported at 0300. Hydrocodone PO given, and patient was able to rest after. O2 titrated up during start of shift based on decreased SPO2 during ambulation and then again at rest, but was able to maintain above 94% after 3L NC given. Right wrist laceration cleaned with saline flush, and optifoam placed over wound. Report given to kit webber RN>.
[2020-09-21] MEDS: tamsulosin 0.4 mg Capsule PO (08:35)
[2020-09-21] MEDS: pantoprazole DR 40 mg Tablet PO (08:54)
[2020-09-21] MEDS: predniSONE 10 mg Tablet PO (08:54)
[2020-09-21] MEDS: cyanocobalamin 1,000 mcg/mL SDV 1000 MCG IM (09:00)
[2020-09-21] MEDS: enoxaparin 80 mg/0.8 mL Syringe SUBCUT (09:05)
--- NOTE | 2020-09-21 10:46 | P.DS_ITS ---
Discharge Providers Date of Admission: 09/20/20 14:44 Date of Discharge: September 21, 2020 Attending Provider at Admission: Sussy Conley MD Attending Provider at Discharge: Vinny Cristina MD Primary Care Provider: Pernell Cisneros DO Diagnoses at Discharge Discharge Diagnosis (1) Pulmonary embolism: Status: Acute Qualifiers: Acute cor pulmonale presence: without acute cor pulmonale Chronicity: acute Pulmonary embolism type: unspecified Qualified Code(s): I26.99 - Other pulmonary embolism without acute cor pulmonale (2) B12 deficiency: Status: Acute (3) SOB (shortness of breath): Status: Acute (4) Benign prostatic hyperplasia with incomplete bladder emptying: Status: Acute (5) Acute diverticulitis: Status: Acute (6) Macrocytic anemia with vitamin B12 deficiency: Status: Acute Reason for Visit Reason for Visit: o2 86/ general not feeling good Hospital Course Discharge Summary: Patient presented with shortness of breath and chest pain. He was diagnosed with acute pulmonary emboli. He also mentioned left lower quadrant abdominal pain and diagnosed with acute diverticulitis. Patient was started on therapeutic anticoagulation as well as antibiotics and gradually improved and this morning reports feeling much better and wants to go home. Reports that his abdominal pain much improved. Reports that he was able to urinate this morning and walking without difficulty. He was found to have evidence of benign prostatic hyperplasia and some degree of urinary retention. He denies dysuria and we will make an appointment to see Dr. Pereira. Patient will be continued on ciprofloxacin and Flagyl for 7 more days. Patient will follow up with Dr. Negron to have post treatment colonoscopy in several weeks. [facility]. Bladder scan showed 250ml of urine and patient urinated 200ml shortly after. Physical Exam Const: COMMON NORMALS: no acute distress and patient oriented x3 Resp: COMMON NORMALS: normal respiratory effort and clear to auscultation bilaterally AUSCULTATION: clear to auscultation bilaterally Cardio: COMMON NORMALS: regular rate, regular rhythm and S2 normal heart sound present RATE: regular rate RHYTHM: regular rhythm HEART SOUNDS: S2 normal heart sound present OTHER: No lower extremity edema GI: COMMON NORMALS: Normal to inspection, nondistended, normoactive bowel sounds present, Soft to palpation and non-tender PALPATION: Yes Soft to palpation Neuro: COMMON NORMALS: patient oriented x3 and no focal motor deficits Discharge Data Data Completed and Pending: Completed Studies During Hospitalization Category Date Time Status CT abdomen pelvis w con* [id number] Rout ine Cat Scan 09/20/20 08:[address] angio chest PE protcl [id number] Urge nt Cat Scan 09/19/20 20:21 Completed XR chest 1V masha ble [id number] Stat Exams 09/19/20 17:17 Completed CV echo complete* [id number] Routine Ultrasound 09/20/20 23:08 [place] [id number] Routin e Ultrasound 09/20/20 23:36 Completed Pending at discharge Category Date Time Status Complete Blood Co unt w/Auto AM LABS Lab 09/22/20 04:00 Ordered Complete Blood Co unt w/Auto AM LABS Lab 09/23/20 04:00 Ordered Comprehensive Met abolic Panel AM LA BS Lab 09/22/20 04:00 Ordered Comprehensive Met abolic Panel AM LA BS Lab 09/23/20 04:00 Ordered Magnesium AM LABS Lab 09/22/20 04:00 Ordered Magnesium AM LABS Lab 09/23/20 04:00 Ordered Labs from last 24 hours 09/21/20 09/21/20 03:30 03:30 WBC 9.1 RBC 3.25 L Hgb 9.6 L Hct 31.1 L MCV 95.7 H MCH 29.5 MCHC 30.9 RDW 16.5 H Plt Count 405 H MPV 10.8 H Neut % (Auto) 75.1 Lymph % (Auto) 12.4 [place] % (Auto) 8.4 Eos % (Auto) 2.0 Baso % (Auto) 0.7 Neut # (Auto) 6.86 Lymph # (Auto) 1.1 [place] # (Auto) 0.8 Eos # (Auto) 0.2 Baso # (Auto) 0.1 Nucleated RBC % (a uto) 0 Nucleated RBCs # 0.0 Sodium 137 Potassium 3.7 Chloride 101 Carbon Dioxide 28 Anion Gap 11.7 BUN 11 Creatinine 0.9 GFR Calculation Not Reportable Glucose 85 Calculated Osmolal ity 283 L Calcium 8.4 L Magnesium 2.0 Total Bilirubin 1.0 AST 12 ALT 11 Alkaline Phosphata se 86 Total Protein 5.3 L Albumin 3.2 L Globulin 2.1 Vitals: Last Vital Signs Temp 99.6 F 09/21/20 08:00 Pulse 88 09/21/20 08:00 Resp 16 10/22/20 08:00 BP 131/54 09/21/20 08:00 Pulse Ox 93 09/21/20 08:00 Discharge Plan Discharge Patient Disposition: Home Condition: Stable Prescriptions: New pantoprazole 40 mg Tablet,Delayed Release (Dr/Ec) 40 mg PO DAILY Qty: 30 RF: 0 ciprofloxacin HCl 500 mg tablet 500 mg PO Q12H Qty: 14 RF: 0 cyanocobalamin (vitamin B-12) 5,000 mcg capsule 5,000 mcg PO DAILY Qty: 30 RF: 0 metronidazole [Flagyl] 500 mg tablet 500 mg PO Q8H 7 Days Qty: 21 RF: 0 Eliquis DVT-PE Treat 30D Start 5 mg (74 tabs) tablets,dose pack See Rx Instructions .ROUTE .COMPLEX Qty: 74 RF: 0 Continued gabapentin 300 mg capsule 300 - 600 mg PO BID PRN (Reason: unknown) RF: 0 tamsulosin 0.4 mg capsule 0.4 mg PO DAILY RF: 0 hydroxyzine HCl 25 mg tablet 25 mg PO Q4H PRN (Reason: unknown) RF: 0 hydrocodone-acetaminophen 10-325 mg Tablet 1 tab PO Q4H PRN (Reason: Pain) RF: 0 prednisone 20 mg tablet See Rx Instructions .ROUTE .COMPLEX RF: 0 Discharge Orders: Discharge Order (Routine); Ordered 09/21/20 Ordered By: Vinny Cristina Other Ambulatory Orders: Complete Blood Count w/Auto (Routine) Timeframe: 20200925 Location: Determined by Patient Ordered By: Vinny Cristina Referrals: Jeffrey Negron MD [Physician] - 2 weeks Sukh Pereira MD [Physician] - 1 week Pernell Cisneros DO [Primary Care Provider] - 4-7 days Discharge Diet: Advance as tolerated Discharge Activity: Increase activity as tolerated Activity Restrictions/Additional Instructions: Please call your doctor or present to emergency department if your condition worsens or you develop diarrhea, lightheadedness, fatigue or see blood in your stool or black stool. Please follow-up with your newspaper columnist as scheduled and Dr. Pereira earliest possible. 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
[2020-09-21] MEDS: ciprofloxacin 400 MG/200 ML PREMIX 200 MG IV (10:56)
[2020-09-21 12:53] LABS: Bilirubin Urine Neg (Negative); Blood Urine Neg (Negative); Glucose Urine UA Norm (Normal); Ketones Urine Negative (Negative); Leukocyte Esterase Urine Negative (Negative); Nitrate Urine Negative (Negative); Protein Urine Neg (Negative); Urine Appearance Clear (CLEAR); Urine Color Yellow (Yellow); Urobilinogen Urine Norm (Negative); pH Urine 6 (5-7)
[2020-09-21 12:54] LABS: Add Urine Culture? No; Bacteria Urine TRACE /hpf
--- NOTE | 2020-09-21 16:19 | PC.NURSE ---
Discharged Patient. Discussed new medications to be picked up at [facility] and reason for the meds. Advised patient of follow up visits scheduled and provided hime information about rescheduling if needed. Provided information and encouraged pt to call if he has any questions. Removed IV. IV intact. Took patient to surgical entrance via wheelchair and met for pickup.
== END 2020-09-21 15:10 | disposition home or self-care (01) | DRG 176 ==
LOC: ER 21:49 → ICU 09-20 02:14
PROVIDERS: Emergency Medicine; Nurse Practitioner Family; Admitting Provider Internal Medicine; PCP Internal Medicine; Visit Provider Internal Medicine
DX: I26.99 Other pulmonary embolism without acute cor pulmonale (principal); K92.1 Melena; N13.8 Other obstructive and reflux uropathy; K57.32 Diverticulitis of large intestine without perforation or abscess without bleeding; M35.3 Polymyalgia rheumatica; I10 Essential (primary) hypertension; F40.240 Claustrophobia; F17.220 Nicotine dependence, chewing tobacco, uncomplicated; N40.1 Benign prostatic hyperplasia with lower urinary tract symptoms; K76.0 Fatty (change of) liver, not elsewhere classified; D18.09 Hemangioma of other sites; K44.9 Diaphragmatic hernia without obstruction or gangrene; Z79.891 Long term (current) use of opiate analgesic; D51.9 Vitamin B12 deficiency anemia, unspecified
CPT/HCPCS: 12345; 36415; 36416; 51798; 71045; 71275; 74177; 80053; 81001; 82378; 82607; 82728; 82746; 82962; 83540; 83550; 83735; 83880; 84484; 85025; 85378; 85610; 93005; 93306; 93970; 96372; 96375; 99283; G0378; J0744; J1650; J2270; J3420; J7512; Q9967; S0030

== ENCOUNTER → 2020-09-29 16:45 | Outpatient (BNVA) | payer MEDICARE, OTHER, SELFPAY | PROVIDERS: PCP Internal Medicine; Visit Provider Urology | DX: R97.20 Elevated prostate specific antigen [PSA] (principal); N40.1 Benign prostatic hyperplasia with lower urinary tract symptoms | CPT/HCPCS: 81003; 84153 ==

== ENCOUNTER → 2020-11-28 10:57 | Outpatient (BNVA) | payer MEDICARE, OTHER, SELFPAY | PROVIDERS: PCP Internal Medicine; Visit Provider Urology | DX: R97.20 Elevated prostate specific antigen [PSA] (principal); N39.9 Disorder of urinary system, unspecified | CPT/HCPCS: 84153 ==

== ENCOUNTER → 2020-11-29 08:46 | Outpatient (BNVA) | payer MEDICARE, OTHER, SELFPAY | PROVIDERS: PCP Internal Medicine; Visit Provider Urology | DX: N40.1 Benign prostatic hyperplasia with lower urinary tract symptoms (principal); R97.20 Elevated prostate specific antigen [PSA] | CPT/HCPCS: 81003 ==

== ENCOUNTER 2021-01-02 12:00 | Outpatient (CLI) | payer MEDICARE, OTHER, SELFPAY | END 2021-01-02 12:01 | disposition home or self-care (01) | LOC: SLEEP 01-03 14:46 | PROVIDERS: PCP Internal Medicine; Visit Provider Internal Medicine | DX: G47.10 Hypersomnia, unspecified (principal) | CPT/HCPCS: G0399 ==

== ENCOUNTER → 2021-01-15 12:23 | Outpatient (BNVA) | payer MEDICARE, OTHER, SELFPAY | PROVIDERS: PCP Internal Medicine; Visit Provider Surgery | DX: Z01.812 Encounter for preprocedural laboratory examination (principal) | CPT/HCPCS: 87635 ==

== ENCOUNTER 2021-01-18 06:11 | Day surgery (SDC) | payer MEDICARE, OTHER, SELFPAY ==
[2021-01-15 12:54] VITALS: BMI 25.8
[2021-01-18 06:36] VITALS: BP 138/66; PULSE 78; RESP 18; TEMP 36.6; O2SAT 95
--- NOTE | 2021-01-18 06:42 | W.PM.OPSUD ---
Surgery/Procedure H&P Update DATE OF PROCEDURE: January 18, 2021 DATE H&P PERFORMED: 01/09/21 H&P UPDATE INFORMATION: No changes to prior documentation PLANNED PROCEDURE: Operation Date: 01/18/21 07:00 Proposed Procedures p EGD 69931 K21.9 D50.9 R10.13(Not Applicable) - Jeffrey Negron MD
--- NOTE | 2021-01-18 06:48 | ANES.PREANE2 ---
Pre-Anesthetic Assessment Pre-Anesthetic Assessment: Height/Weight: Height 1.73 m Weight 77.111 kg Preop Diagnosis: anemia Proposed Procedure: Operation Date: 01/18/21 07:00 Proposed Procedures p EGD 07107 K21.9 D50.9 R10.13(Not Applicable) - Jeffrey Negron MD Familial anesthetic complications: None Was Beta Starr taken within 24 hours: N/A Last intake: NPO Social: Social History: Tobacco (chews tobacco) and No alcohol Exam: Pre-Anes Outpt Exam: alert, oriented x 3, clear to auscultation bilaterally and regular rate & rhythm Airway: Cervical ROM: WNL MP: 4 Dentition: Other (no teeth) Pulmonary: Comments: Hx of recent PE on eliquis - still short of breath. Does wear O2 2 L NC prn for 1-2 hrs a day after doing activities CV/HEM: Comments: Complaints of SOB, chest pain, Palpitations - underwent cath in late 2019, normal coronary arteries, normal LV function, slight Mitral regurge. Diagnosed w/ PE. GI: GI: GERD Anesthetic Plan: ASA status: 3 Anesthesia: General Risk of > 500 ml blood loss (7ml/kg in children): No PFSH Anesthesia PFSH: Medical History Acute diverticulitis Arthritis BPH loc w urin obs/LUTS Chest pain Elevated PSA Macrocytic anemia with vitamin B12 deficiency Mitral valve insufficiency Pounding heartbeat SOB (shortness of breath) Surgical History Previous back surgery S/P appendectomy S/P cataract extraction Family History Mother CAD (coronary artery disease) Father , AGE 84 Myocardial infarction Social History Smoking and tobacco status: current every day smoker smokeless tobacco Smokeless tobacco details: OCCA Household members: spouse Marital status: service: No Current occupational status: employed Data Anesthesia Cardiac Studies: No Data to Display
[2021-01-18] MEDS: sodium chloride 0.9% 1,000 ML 30 ML IV (06:52)
[2021-01-18 07:11] VITALS: BP 130/63; PULSE 78; RESP 16; TEMP 36.1; O2SAT 93
--- NOTE | 2021-01-18 07:13 | ANE.PACU2 ---
Inpatient post-anesthesia follow up: Airway intact: Yes Vital signs: Temperature 97 F Pulse Rate 78 Respiratory Rate 16 Blood Pressure 130/63 Pulse Oximetry 93 Oxygen Delivery Me thod Nasal Cannula Oxygen Flow Rate 2 Fraction of Inspir ed Oxygen Hydration adequate: Yes Nausea and vomiting: No Pain level: 1 Mental status: Baseline
[2021-01-18 07:21] VITALS: BP 124/58; PULSE 124; RESP 18; O2SAT 95
== END 2021-01-18 07:45 | disposition home or self-care (01) ==
PROVIDERS: PCP Internal Medicine; Visit Provider Surgery
PROC: 0DJ08ZZ Inspection of Upper Intestinal Tract, Via Natural or Artificial Opening Endoscopic (ICD-10-PCS; CPT 43235; principal; 2021-01-18 07:00)
DX: R10.13 Epigastric pain (principal); K44.9 Diaphragmatic hernia without obstruction or gangrene; K21.9 Gastro-esophageal reflux disease without esophagitis; D50.9 Iron deficiency anemia, unspecified; M19.90 Unspecified osteoarthritis, unspecified site; G47.30 Sleep apnea, unspecified; Z79.52 Long term (current) use of systemic steroids; F17.220 Nicotine dependence, chewing tobacco, uncomplicated; Z79.01 Long term (current) use of anticoagulants; Z86.711 Personal history of pulmonary embolism; N40.1 Benign prostatic hyperplasia with lower urinary tract symptoms; Z82.49 Family history of ischemic heart disease and other diseases of the circulatory system
CPT/HCPCS: 12345; 43235; J2704; J7030

== ENCOUNTER → 2021-02-12 11:25 | Outpatient (BNVA) | payer MEDICARE, SELFPAY | PROVIDERS: PCP Internal Medicine; Visit Provider Urology | DX: R97.20 Elevated prostate specific antigen [PSA] (principal) | CPT/HCPCS: 84153 ==

== ENCOUNTER → 2021-02-14 13:13 | Outpatient (BNVA) | payer MEDICARE, SELFPAY | PROVIDERS: PCP Internal Medicine; Visit Provider Urology | DX: N40.1 Benign prostatic hyperplasia with lower urinary tract symptoms (principal); R97.20 Elevated prostate specific antigen [PSA] | CPT/HCPCS: 81003 ==

== ENCOUNTER 2021-03-01 10:44 | Outpatient (CLI) | payer MEDICARE, SELFPAY ==
[2021-03-01 11:42] LABS: Carcinoembryonic Antigen 1.8 ng/mL (0.0-4.7); Thyroid Stimulating Hormone 1.21 uIU/mL (0.27-4.20)
[2021-03-01 11:53] LABS: Anion Gap 11.9 (5-19); Blood Urea Nitrogen 10 mg/dL (8-23); Calcium 8.6 mg/dL (8.5-10.5); Carbon Dioxide 25 mmol/L (22-29); Chloride 105 mmol/L (98-107); Glucose 102 mg/dL (65-115); Osmolality Calculated 285 mOsm/kg (285-295); Potassium 3.9 mmol/L (3.5-5.1); Sodium 138 mmol/L (136-145)
[2021-03-02 05:47] LABS: T4 Total 7.7 mcg/dL (4.9-10.5)
== END 2021-03-01 10:45 | disposition home or self-care (01) ==
LOC: LAB 10:53
PROVIDERS: PCP Internal Medicine; Visit Provider Internal Medicine Pulmonary Disease
DX: I26.99 Other pulmonary embolism without acute cor pulmonale (principal); K92.1 Melena
CPT/HCPCS: 36415; 80048; 82378; 84436; 84443

== ENCOUNTER 2021-03-05 09:38 | Outpatient (CLI) | payer MEDICARE, SELFPAY ==
--- NOTE | 2021-03-05 09:30 | CT_ITS ---
WS: [id number] CT CHEST ANGIOGRAPHY WITH REFORMATS HISTORY: ? Pulmonary embolism TECHNIQUE: Contiguous axial images are obtained through the chest during arterial injection of intrav enous contrast. Images are reconstructed to evaluate the pulmonary arteries. MIP imaging also reviewe d. All CT scans at [facility] use at least one of these dose optimization techniques: aut omated exposure control; mA and/or kV adjustment per patient size (includes targeted exams where dose is matched to clinical indication); or iterative reconstruction. CONTRAST: Omnipaque 350; 95 mL IV. DLP: 755.17 mGycm COMPARISON: 09/19/2020 Very good opacification of the pulmonary arteries. No filling defects are identified. No pulmonary em bolism. Pulmonary artery size is slightly enlarged. Mild atherosclerosis of the aorta. There is no an eurysm of the thoracic aorta. Cardiac chambers are slightly enlarged. No pericardial or pleural effus ions. No mediastinal or hilar lymph nodes. Small stable lymph nodes at the RIGHT hilum. Mild dependent changes at the lung bases bilaterally. Benign granuloma LEFT upper lobe. Focal area of linear atelectasis RIGHT upper lobes. Mildly enlarged bilateral thyroid extends substernal consistent with a goiter. No discrete nodule. St able low-attenuation lesion in the LEFT lobe of the liver measures 1.9 cm. Benign splenic and hepatic granulomatous. Incompletely visualized cyst associated with the LEFT kidney measures 3.7 cm. There i s a smaller cyst exophytic from the superior pole. Adrenal glands are negative. RIGHT humeral head replacement. CT/CT angio chest PE protcl [id number] IMPRESSION: 1. No pulmonary emboli. 2. No adenopathy or pneumonia. 3. Substernal thyroid goiter. 4. Small hiatal hernia. 5. Mild cardiomegaly. 6. Prior granulomatous disease.
[2021-03-05] MEDS: iohexol 350 mg/mL 100 mL Btl IV (10:36)
== END 2021-03-05 09:39 | disposition home or self-care (01) ==
PROVIDERS: PCP Internal Medicine; Visit Provider Internal Medicine Pulmonary Disease
DX: I26.99 Other pulmonary embolism without acute cor pulmonale (principal); E04.8 Other specified nontoxic goiter; K44.9 Diaphragmatic hernia without obstruction or gangrene; I51.7 Cardiomegaly
CPT/HCPCS: 71275; Q9967

== ENCOUNTER → 2021-03-27 10:35 | Day surgery (SDC) | payer MEDICARE, SELFPAY ==
[2021-03-27 10:51] VITALS: BP 124/47; PULSE 70; RESP 18; TEMP 36.6; O2SAT 95
[2021-03-27 10:57] VITALS: BMI 25.8
[2021-03-27] MEDS: iron sucrose 500 MG in sodium chloride 0.9% 250 ML 68.8 MG IV (11:22)
== END ==
PROVIDERS: PCP Internal Medicine; Visit Provider Internal Medicine
DX: D50.9 Iron deficiency anemia, unspecified (principal)
CPT/HCPCS: 96365; J1756; J7050

== ENCOUNTER → 2021-04-03 10:36 | Day surgery (SDC) | payer MEDICARE, SELFPAY ==
[2021-04-03 11:00] VITALS: BP 130/46; PULSE 76; RESP 18; TEMP 36.6; O2SAT 97; BMI 25.8
[2021-04-03] MEDS: iron sucrose 500 MG in sodium chloride 0.9% 250 ML 78.6 MG IV (11:04)
== END ==
PROVIDERS: PCP Internal Medicine; Visit Provider Internal Medicine
DX: D50.9 Iron deficiency anemia, unspecified (principal)
CPT/HCPCS: 96365; 96366; J1756; J7050

== ENCOUNTER → 2021-06-18 10:25 | Outpatient (BNVA) | payer MEDICARE, SELFPAY | PROVIDERS: PCP Internal Medicine; Visit Provider Urology | DX: R97.20 Elevated prostate specific antigen [PSA] (principal) | CPT/HCPCS: 84153 ==

== ENCOUNTER → 2021-06-25 07:49 | Outpatient (BNVA) | payer MEDICARE, SELFPAY | PROVIDERS: PCP Internal Medicine; Visit Provider Urology | DX: N40.1 Benign prostatic hyperplasia with lower urinary tract symptoms (principal); R97.20 Elevated prostate specific antigen [PSA] | CPT/HCPCS: 81003 ==

== ENCOUNTER → 2021-10-15 11:21 | Outpatient (BNVA) | payer MEDICARE, SELFPAY | PROVIDERS: PCP Internal Medicine; Visit Provider Urology | DX: R97.20 Elevated prostate specific antigen [PSA] (principal) | CPT/HCPCS: 84153 ==

== ENCOUNTER 2021-10-22 13:18 | Outpatient (CLI) | payer MEDICARE, SELFPAY ==
[2021-10-22 14:22] LABS: Anion Gap 12.2 (5-19); Blood Urea Nitrogen 9 mg/dL (8-23); Calcium 8.8 mg/dL (8.5-10.5); Carbon Dioxide 29 mmol/L (22-29); Chloride 105 mmol/L (98-107); Glucose 108 mg/dL (65-115); Osmolality Calculated 293 mOsm/kg (285-295); Potassium 4.2 mmol/L (3.5-5.1); Sodium 142 mmol/L (136-145)
[2021-10-22 15:00] LABS: D Dimer 0.64 ug/mIFEU (0-0.59)
== END 2021-10-22 13:19 | disposition home or self-care (01) ==
LOC: LAB 13:24
PROVIDERS: PCP Internal Medicine; Visit Provider Internal Medicine Pulmonary Disease
DX: I26.99 Other pulmonary embolism without acute cor pulmonale (principal); R00.2 Palpitations; R07.9 Chest pain, unspecified
CPT/HCPCS: 36415; 80048; 81003; 85378

== ENCOUNTER 2021-11-22 11:26 | Outpatient (CLI) | payer MEDICARE, SELFPAY ==
--- NOTE | 2021-11-22 11:30 | CT_ITS ---
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 Images are reconstructed to evaluate the pulmonary arteries. MIP imaging also reviewe d. All CT scans at [facility] use at least one of these dose optimization techniques: automat ed exposure control; mA and/or kV adjustment per patient size (includes targeted exams where dose is matched to clinical indication); or iterative reconstruction. CONTRAST: Omnipaque 350; 81 mL IV. DLP: 555.53 mGy.cm COMPARISON: 03/05/2021, 09/19/2020 Excellent opacification of the pulmonary arteries. No filling defects. Pulmonary artery size is equal to the aorta. Mild atherosclerosis of the thoracic aorta. There is very mild enlargement of the hear t chambers. No RIGHT heart strain. No pericardial or pleural effusion. There are a few scattered benign granulomata and mild dependent changes posteriorly. Peribronchial th ickening extending into the RIGHT lower lung field beginning from the hilum and surrounding the bronc hus and the pulmonary artery. There is a more focal nodule in the RIGHT lower lobe measuring 10 x 8 m m which is probably focal bronchial wall thickening. Very similar to the study from 09/19/2020. There may be associated calcification within the bronchus. Prominent RIGHT infrahilar lymph nodes surround ing the RIGHT lower lobe pulmonary artery measuring up to 8 mm in diameter. Heart is moderately enlarged. No pericardial or pleural effusion. Small hiatal hernia. Exophytic cyst from the upper pole of the LEFT kidney measures 4.3 x 3.8 cm. There is a smaller cyst extending from the lateral upper pole. No adrenal mass. CT/CT angio chest PE protcl [id number] IMPRESSION: 1. No pulmonary embolism. 2. No pneumonia. 3. Moderate cardiomegaly. 4. Peribronchial thickening beginning from the RIGHT hilum extending into the RIGHT lower lobe. This bronchial wall thickening is similar to the study from . 5. Chronic emphysema.
[2021-11-22] MEDS: iohexol 350 mg/mL 100 mL Btl IV (12:11)
== END 2021-11-22 11:27 | disposition home or self-care (01) ==
PROVIDERS: PCP Internal Medicine; Visit Provider Internal Medicine Pulmonary Disease
DX: R07.9 Chest pain, unspecified (principal); I26.99 Other pulmonary embolism without acute cor pulmonale; I51.7 Cardiomegaly; J43.9 Emphysema, unspecified
CPT/HCPCS: 71275

== ENCOUNTER 2022-03-07 11:43 | Emergency (ER) | payer MEDICARE, SELFPAY ==
[2022-03-07 11:50] VITALS: BP 103/48; PULSE 106; RESP 18; TEMP 36.7; O2SAT 93; BMI 23.5
--- NOTE | 2022-03-07 12:03 | W.ED.SOB ---
HPI - SOB/Dyspnea General: Chief Complaint: Shortness of Breath/Dyspnea Stated Complaint: SOB X 2 DAYS Time Seen by Provider: 03/07/22 11:48 Source: patient Mode of arrival: EMS History of Present Illness: HPI Narrative: 82-year-old male presents emergency room complaining of shortness of breath. Patient reports he had COVID in December and since then he has had increasing difficulty. According to his old records he has a mitral valve insufficiency. There is no record of previous atrial fibrillation that I can find. He states he normally does not use oxygen on arrival here he is requiring 4 L/min he has some tachycardia and irregular rhythm. He denies any chest pain. He is not really noticed any orthopnea. He denies any fever sweats chills or productive cough.Looking at some of his old cardiology notes there is a note from March 2020 where the patient complains of chest pain and shortness of breath according to the saw superintendent note he has had that complaint for nearly 7 years at that point. He also reports palpitations but there is no notation that he has atrial fibrillation. There is a notation that at 1 point they did do a coronary angiogram and he had normal coronary arteries MD elicited complaint: shortness of breath [facility] ED PFSH: Medical History (Updated 03/07/22 @ 16:27 by Salvatore Rodríguez DO) Acute diverticulitis Arthritis BPH loc w urin obs/LUTS Chest pain Elevated PSA Macrocytic anemia with vitamin B12 deficiency Mitral valve insufficiency Pounding heartbeat SOB (shortness of breath) Surgical History Previous back surgery S/P appendectomy S/P cataract extraction Family History Mother , at age 92 CAD (coronary artery disease) Father , AGE 84 Myocardial infarction Social History Smoking and tobacco status: never smoked Quit status (tobacco): has tried quititng Second hand smoke exposure: No Smoking risk assessment/counseling performed?: Yes Alcohol intake: never Lives independently: Yes Household members: spouse Housing: House Marital status: service: No Current occupational status: employed Pets and animals: Yes History of recent travel: No Current gender identity: Male Physical Exam Const: COMMON NORMALS: no acute distress GENERAL APPEARANCE: cooperative and comfortable ORIENTATION/CONSCIOUSNESS: Yes awake, Yes oriented to person, Yes oriented to place and Yes oriented to time HENMT: COMMON NORMALS: normocephalic, atraumatic and hearing grossly normal bilaterally HEAD & SCALP: normocephalic and atraumatic Resp: COMMON NORMALS: normal respiratory effort, No retractions, No use of accessory muscles and clear to auscultation bilaterally AUSCULTATION: clear to auscultation bilaterally Cardio: COMMON NORMALS: regular rhythm and No murmurs present (Cardio) RATE: tachycardic RHYTHM: regular rhythm GI: COMMON NORMALS: Soft to palpation and No hepatosplenomegaly present AUSCULTATION: Yes normoactive bowel sounds PALPATION: Yes Soft to palpation, No Tenderness to palpation present (GI), No Guarding due to palpation present (GI) and Yes No hepatosplenomegaly present Extremity: COMMON NORMALS: normal to inspection, capillary refill normal, no clubbing, cyanosis or edema, no calf tenderness and no pedal edema Neuro: SENSORIUM/ORIENTATION: Yes oriented to person, Yes oriented to place and Yes oriented to time Skin: COMMON NORMALS: no rashes or lesions noted GENERAL SKIN EXAM: no rashes or lesions noted Course Vital Signs: Vital signs: Vital Signs Temperature 98.1 F 03/07/22 11:50 Pulse Rate 105 H 03/07/22 13:26 Respiratory Rate 16 03/07/22 13:26 Blood Pressure 109/58 03/07/22 13:26 Pulse Oximetry 87 L 03/07/22 15:46 MDM - SOB/Dyspnea Medical Decision Making This is been a chronic longstanding issue for this patient he relates to beginning after he had COVID in December reviewing his old chart he previously did a pulmonary embolism he was rescreened for that in late October because of similar complaints at that time. There is a note from March 2020 from cardiology where he states he has the same symptoms for 7 years. Patient is presenting today stating that worsening however on his baseline oxygen at 3 L he is maintaining his sats normally he does get more tachycardic when he gets up to compensate. However he maintains his sats. I called and talked his primary care doctor Dr. Cisneros he has work-up begun for this and is being referred to pulmonary rehab. Looking at Dr. Castillo's notes he had seen the patient in late January and had not recommended a repeat CTA he did have one in late October. He is not having any chest pain now. I did not repeat CTA because while he has had a PE in the past nothing is really changed in the last couple of months in reviewing the notes. Did recommend the patient use his oxygen continuously to use no less than 3 L/min while resting and consider increasing slightly if he is up and going to be active. Follow-up with Dr. Cisneros and Dr. Castillo for the outpatient work-up they are currently scheduling. Medical Records I reviewed the patient's medical records. Lab Data I reviewed the patient's lab results. : 03/07/22 12:01 03/07/22 12:01 Labs/Radiology: Radiology Impressions Chest X-Ray 03/07/22 12:06 IMPRESSION: 1. No acute cardiopulmonary disease. 2. No pneumonia. Laboratory Results WBC 11.8 10^3/uL (4.0-10.0) H 03/07/22 12:01 RBC 3.13 10^6/uL (4.1-5.3) L 03/07/22 12:01 Hgb 10.3 g/dL (11.7-16.6) L 03/07/22 12:01 Hct 32.2 % (42.0-52.0) L 03/07/22 12:01 MCV 102.9 fl (80-94) H 03/07/22 12:01 MCH 32.9 pg (28.0-34.0) 03/07/22 12:01 MCHC 32.0 g/dL (30.0-36.0) 03/07/22 12:01 RDW 17.2 % (12.1-15.1) H 03/07/22 12:01 Plt Count 479 10^3/cmm (130-400) H 03/07/22 12:01 MPV 10.8 fL (7.4-10.4) H 03/07/22 12:01 Neut % (Auto) 83.7 % 03/07/22 12:01 Lymph % (Auto) 5.0 % 03/07/22 12:01 Evangeline % (Auto) 7.7 % 03/07/22 12:01 Eos % (Auto) 2.4 % 03/07/22 12:01 Baso % (Auto) 0.3 % 03/07/22 12:01 Neut # (Auto) 9.85 10^3/uL (1.8-7.7) H 03/07/22 12:01 Lymph # (Auto) 0.6 10^3/uL (0.8-4.8) L 03/07/22 12:01 Evangeline # (Auto) 0.9 10^3/uL (0.2-0.9) 03/07/22 12:01 Eos # (Auto) 0.3 10^3/uL (0.0-0.8) 03/07/22 12:01 Baso # (Auto) 0.0 10^3/uL (0.0-0.1) 03/07/22 12:01 Nucleated RBC % (auto) 0 % 03/07/22 12:01 Nucleated RBCs # 0.0 /100WBC 03/07/22 12:01 Sodium 136 mmol/L (136-145) 03/07/22 12:01 Potassium 3.8 mmol/L (3.5-5.1) 03/07/22 12:01 Chloride 102 mmol/L (98-107) 03/07/22 12:01 Carbon Dioxide 21 mmol/L (22-29) L 03/07/22 12:01 Anion Gap 16.8 (5-19) 03/07/22 12:01 BUN 13 mg/dL (8-23) 03/07/22 12:01 Creatinine 0.8 mg/dL (0.7-1.2) 03/07/22 12:01 GFR Calculation Not Reportable 03/07/22 12:01 Glucose 174 mg/dL (65-115) H 03/07/22 12:01 Calculated Osmolality 286 mOsm/kg (285-295) 03/07/22 12:01 Calcium 9.0 mg/dL (8.5-10.5) 03/07/22 12:01 Total Bilirubin 1.0 mg/dL (0.15-1.2) 03/07/22 12:01 AST 11 U/L (0-40) 03/07/22 12:01 ALT 10 U/L (0-41) 03/07/22 12:01 Alkaline Phosphatase 160 IU/L (40-130) H 03/07/22 12:01 Troponin T Baseline 83 ng/L (0-15) H 03/07/22 12:01 Troponin T 120 Minute 85.40 ng/L (0-15) H 03/07/22 14:21 Delta Troponin T 2.40 ABS# (0-10) 03/07/22 14:21 NT-Pro-B Natriuret Pep 361 pg/mL (0-450) 03/07/22 12:01 Total Protein 5.7 g/dL (6.6-8.7) L 03/07/22 12:01 Albumin 3.7 g/dL (3.5-5.2) 03/07/22 12:01 Globulin 2.0 g/dL (1.3-4.6) 03/07/22 12:01 Urine Color Yellow (Yellow) 03/07/22 14:15 Urine Appearance Clear (CLEAR) 03/07/22 14:15 Urine pH 6 (5-7) 03/07/22 14:15 Ur Specific [place] 1.015 (1.005-1.030) 03/07/22 14:15 Urine Protein Neg (Negative) 03/07/22 14:15 Urine Glucose (UA) Norm (Normal) 03/07/22 14:15 Urine Ketones Negative (Negative) 03/07/22 14:15 Urine Blood Neg (Negative) 03/07/22 14:15 Urine Nitrate Negative (Negative) 03/07/22 14:15 Urine Bilirubin Neg (Negative) 03/07/22 14:15 Urine Urobilinogen Neg mg/dL (Negative) 03/07/22 14:15 Ur Leukocyte Esterase Negative (Negative) 03/07/22 14:15 Discharge Plan Discharge Patient Disposition: Home Clinical Impression: Dyspnea on exertion Condition: Stable Prescriptions: No Action omeprazole 20 mg capsule,delayed release(DR/EC) 20 mg PO DAILY Qty: 30 2RF hydrocodone-acetaminophen 10-325 mg Tablet 1 tab PO Q4H PRN (Reason: Pain) 0RF prednisone 20 mg tablet 20 mg PO DAILY 0RF albuterol sulfate 2.5 mg /3 mL (0.083 %) solution for nebulization 2.5 mg inhalation Q4H PRN (Reason: Shortness Of Breath) 0RF levetiracetam 500 mg tablet 500 mg PO BID 0RF sertraline 25 mg tablet 25 mg PO DAILY 0RF budesonide 0.5 mg/2 mL suspension for nebulization 0.5 mg inhalation PRN PRN (Reason: Shortness Of Breath) 0RF tamsulosin 0.4 mg capsule 0.4 mg PO DAILY 0RF colchicine 0.6 mg Tablet 0.6 mg PO BID 0RF ivermectin 3 mg Tablet 3 mg PO PER PKG DIR 0RF Discharge Orders: Discharge ED (Routine); Ordered 03/07/22 Ordered By: Salvatore Rodríguez Referrals: Pernell Cisneros DO [Primary Care Provider] - Discharge Activity: Resume usual activity Patient Instructions: Opioid Safety Activity Restrictions/Additional Instructions: Follow-up testing as scheduled by Dr. Cisneros and Dr. Castillo Coding Level of Care Code ED Lead Handler for Sandra Freeman
--- NOTE | 2022-03-07 12:06 | ECG_ITS ---
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 Measurements Intervals [place] Rate: 106 P: 62 WV: 150 QRS: 44 QRSD: 84 T: 62 QT: 318 QTc: 423 Interpretive Statements SINUS TACHYCARDIA WITH FREQUENT ECTOPIC PREMATURE COMPLEXES LOW QRS VOLTAGE IN PRECORDIAL LEADS [QRS DEFLECTION < 1.0 mV IN CHEST LEADS] POSSIBLE RIGHT VENTRICULAR CONDUCTION DELAY [RSR (QR) IN V1/V2] ABNORMAL RHYTHM ECG Compared to ECG 09/20/2020 01:04:19 Low QRS voltage now present Sinus rhythm no longer present Sinus arrhythmia no longer present Electronically Signed On 03-07-2022 16:12:19 CDT by Jakub Gifford M.D. [id number]
--- NOTE | 2022-03-07 12:06 | XR_ITS ---
WS: [id number] PORTABLE CHEST HISTORY: dyspnea/cough COMPARISON: 09/19/2020 No pneumonia. Several small benign granulomas are noted throughout the chest. These granulomas were c onfirmed on a CT from 11/22/2021. No pleural effusion or pneumothorax. Cardiac size: Normal. Mediastinum/Aorta: Mild atherosclerosis aorta. Reverse RIGHT glenohumeral joint replacement. Mild bilateral narrowing of the AC joints. XR/XR chest 1V portable [id number] IMPRESSION: 1. No acute cardiopulmonary disease. 2. No pneumonia.
[2022-03-07 12:32] LABS: Basophils % 0.3 %; Eosinophils # 0.3 10^3/uL (0.0-0.8); Eosinophils % 2.4 %; Hematocrit 32.2 % (42.0-52.0); Hemoglobin 10.3 g/dL (11.7-16.6); Lymphocytes # 0.6 10^3/uL (0.8-4.8); Mean Corpuscular Hemoglobin 32.9 pg (28.0-34.0); Mean Corpuscular Volume 102.9 fl (80-94); Mean Platelet Volume 10.8 fL (7.4-10.4); Monocytes # 0.9 10^3/uL (0.2-0.9); Monocytes % 7.7 %; Neutrophils # 9.85 10^3/uL (1.8-7.7); Neutrophils % 83.7 %; Nucleated Red Blood Cells % 0 %; Platelet Count 479 10^3/cmm (130-400); Red Blood Count 3.13 10^6/uL (4.1-5.3); Red Cell Distribution Width 17.2 % (12.1-15.1); White Blood Count 11.8 10^3/uL (4.0-10.0)
[2022-03-07 13:07] LABS: Troponin(5th) Baseline 83 ng/L (0-15)
[2022-03-07 13:12] LABS: Alanine Aminotransferase 10 U/L (0-41); Albumin Level 3.7 g/dL (3.5-5.2); Alkaline Phosphatase 160 IU/L (40-130); Anion Gap 16.8 (5-19); Aspartate Amino Transferase 11 U/L (0-40); Blood Urea Nitrogen 13 mg/dL (8-23); Carbon Dioxide 21 mmol/L (22-29); Chloride 102 mmol/L (98-107); Glucose 174 mg/dL (65-115); NT Pro B Type Natriuretic Pept 361 pg/mL (0-450); Osmolality Calculated 286 mOsm/kg (285-295); Potassium 3.8 mmol/L (3.5-5.1); Sodium 136 mmol/L (136-145); Total Protein 5.7 g/dL (6.6-8.7)
[2022-03-07 13:26] VITALS: BP 109/58; PULSE 105; RESP 16; O2SAT 93
--- NOTE | 2022-03-07 14:06 | ECG_ITS ---
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 Measurements Intervals [place] Rate: 111 P: 13 CA: 160 QRS: -22 QRSD: 82 T: 24 QT: 317 QTc: 431 Interpretive Statements SINUS TACHYCARDIA WITH FREQUENT SUPRAVENTRICULAR PREMATURE COMPLEXES BORDERLINE LEFT AXIS DEVIATION [QRS AXIS < -20] ABNORMAL RHYTHM ECG Compared to ECG 03/07/2022 11:57:41 No significant changes Electronically Signed On 03-07-2022 16:16:43 CDT by Jakub Gifford M.D. [id number]
[2022-03-07 15:04] LABS: Add Urine Microscopic? NO; Charge for UA Resulting for Rev
[2022-03-07 15:06] LABS: Bilirubin Urine Neg (Negative); Blood Urine Neg (Negative); Glucose Urine UA Norm (Normal); Ketones Urine Negative (Negative); Leukocyte Esterase Urine Negative (Negative); Nitrate Urine Negative (Negative); Protein Urine Neg (Negative); Specific Gravity, Urine 1.015 (1.005-1.030); Urine Appearance Clear (CLEAR); Urine Color Yellow (Yellow); Urobilinogen Urine Neg (Negative); pH Urine 6 (5-7)
[2022-03-07 15:46] VITALS: O2SAT 87
[2022-03-07 17:10] VITALS: BP 109/63; PULSE 87; RESP 18; O2SAT 94
== END 2022-03-07 17:06 | disposition home or self-care (01) ==
PROVIDERS: Emergency Provider Family Medicine; PCP Internal Medicine
DX: R06.00 Dyspnea, unspecified (principal)
CPT/HCPCS: 71045; 80053; 81003; 83880; 84484; 85025; 93005; 99283

== ENCOUNTER → 2022-04-02 08:17 | Day surgery (SDC) | payer MEDICARE, SELFPAY ==
[2022-04-02] VITALS (9 sets, daily range): BP systolic 102–124; BP diastolic 42–67; PULSE 80–120; RESP 18; TEMP 36.4–36.8; O2SAT 92–98
[2022-04-02] MEDS: sodium chloride 0.9% (100 ml) 100 ML 10 ML ×2 (10:03→12:03)
== END ==
PROVIDERS: PCP Internal Medicine; Visit Provider Internal Medicine
DX: D50.9 Iron deficiency anemia, unspecified (principal)
CPT/HCPCS: 36415; 36430; 86850; 86900; 86920; P9040